=== PATIENT | male | born 1980 | race Caucasian/White ===

== ENCOUNTER 2018-11-28 02:22 | Outpatient (CLI) | END 2018-11-28 02:39 | disposition short-term general hospital (02) | LOC: AMBL 02:22 | PROVIDERS: ATTEND Internal Medicine Geriatric Medicine | DX: T42.6X1A Poisoning by other antiepileptic and sedative-hypnotic drugs, accidental (unintentional), initial encounter (principal); T40.7X1A Poisoning by cannabis (derivatives), accidental (unintentional), initial encounter; R53.83 Other fatigue; M54.9 Dorsalgia, unspecified ==